=== PATIENT | male | born 1945 | race Caucasian/White ===

== ENCOUNTER 2016-08-31 06:06 | Inpatient (IN) | payer MEDICARE ==
[~2016-08-31 06:06] MED LIST: Buffered Lidocaine 1% SYR 3ML* 3 ML/SYR SYRINGE INTRADERM ONE
[2016-08-31] MEDS ORDERED: Lidocain 1% EPI 1:100,000 * 30 ML MDV ONE (07:05)
[2016-08-31] MEDS ORDERED: Thrombin 5,000 UNITS* 1 APPLIC KIT - topical use - TOPICAL ONE (07:06)
[2016-08-31] MEDS ORDERED: Bacitracin IV* 50,000 UNITS INJ ONE (07:06)
[2016-08-31] MEDS ORDERED: Clindamycin 900 MG IVPREMIX(* 900 MG/50 ML SDV IV ONE (07:10)
[2016-08-31] MEDS ORDERED: Atracurium* 10 MG/ML 10 ML VIAL ONE (07:41)
[2016-08-31] MEDS ORDERED: fentaNYL* 50 MCG/ML 5 ML VIAL (250 MCG VIAL) ONE (07:41)
[2016-08-31] MEDS ORDERED: Propofol* 10 MG/ML 20 ML BTL IV PUSH ONE (08:10)
[2016-08-31] MEDS ORDERED: Lidocaine 2% PF * 5 ML VIAL ONE (08:10)
[2016-08-31] MEDS ORDERED: EPHEDrine (Pressors)* 50 MG/ML VIAL ONE (08:27)
[2016-08-31] MEDS ORDERED: fentaNYL* 50 MCG/ML 2 ML VIAL (100 MCG VIAL) IV PRN (08:35)
[2016-08-31] MEDS ORDERED: Ondansetron INJ* 2 MG/ML VIAL IV PRN ×2 (08:35→09:23)
[2016-08-31] MEDS ORDERED: HYDROcodone/ACETAMIN 5-325 MG* 1 TAB PO PRN (08:35)
[2016-08-31] MEDS ORDERED: DiMENhydriNATE IV* 50 MG/ML VIAL IV PUSH PRN (08:35)
[2016-08-31] MEDS ORDERED: Acetaminophen TAB* 325 MG PO PRN (09:23)
[2016-08-31] MEDS ORDERED: Magnesium Hydroxide LIQ* 30 ML UDC PO PRN (09:23)
[2016-08-31] MEDS ORDERED: fentaNYL* 50 MCG/ML 2 ML VIAL (100 MCG VIAL) ONE (10:06)
--- NOTE | 2016-08-31 11:18 | RAD ---
HISTORY: Decompressive laminectomy COMPARISONS: August 09, 2016 VIEWS: 1 , portable crosstable view of the spine performed intraoperatively for localization during spinal surgery FINDINGS: Counting from L5 as the last lumbar type vertebral body, a metallic probe is opposite of L5-S1. This corresponds to the counting scheme used on the previous CT myelogram., IMPRESSION: LIMITED PORTABLE VIEW SPINE FOR LOCALIZATION DURING SPINAL SURGERY
[2016-08-31] MEDS: HYDROcodone/ACETAMIN 5-325 MG* 1 TAB PO PRN ×3 (11:25→19:36)
[2016-09-01] MEDS: HYDROcodone/ACETAMIN 5-325 MG* 1 TAB PO PRN ×5 (02:36→23:26)
--- NOTE | 2016-09-01 07:45 | PN ---
Progress Note - Progress Note SOAP: Subjective: []POD # 1 Doing well Legs much better Objective: []Neuro intact Drain 405 out Assessment: []Stable post op Plan: [] Doing well Will need to monitor drain output
[2016-09-01] MEDS: Omeprazole CAP* 20 MG PO SCH (10:07)
[2016-09-01] MEDS: Fluticasone NASAL SPRAY 50MCG* 16 gm SPRAY BTL BOTH NARES SCH (10:08)
[2016-09-01] MEDS: CMCS: Simvastatin TAB(NF) 10 MG TAB PO SCH (10:08)
[2016-09-01] MEDS: Sertraline* 25 MG TAB PO SCH (10:08)
[2016-09-02 07:39] VITALS: BP 128/66
[2016-09-02] MEDS: HYDROcodone/ACETAMIN 5-325 MG* 1 TAB PO PRN (08:08)
[2016-09-02] MEDS: CMCS: Simvastatin TAB(NF) 10 MG TAB PO SCH (08:09)
[2016-09-02] MEDS: Sertraline* 25 MG TAB PO SCH (08:09)
[2016-09-02] MEDS: Omeprazole CAP* 20 MG PO SCH (08:09)
[2016-09-02] MEDS: Fluticasone NASAL SPRAY 50MCG* 16 gm SPRAY BTL BOTH NARES SCH (08:09)
--- NOTE | 2016-09-02 09:45 | PN ---
Progress Note - Progress Note SOAP: Subjective: [This is a 71 year old male s/p decompressive lumbar laminectomy L3-4 and L4-5, POD#2. He is feeling well this morning and offers no complaints. Pre-operative lower extremity symptoms are improved. He is ambulating independently without lower extremity pain. He is eating and drinking without difficulty. Denies headache, nausea and vomiting. ] Objective: [ Vital Signs: Temp Pulse Resp BP Pulse Ox 98.7 F 63 18 128/66 99 09/02/16 07:35 09/02/16 07:35 09/02/16 08:08 09/02/16 07:35 09/02/16 07:35 General: Alert and oriented. No distress. Neuro: Motor and sensory intact. Incision: Intact with dorina. No signs of infection. LEANDER drain removed today without complication. Extremities: Full ROM LEANDER drain output 08/31/16 08/31/16 08/31/16 10:30 11:54 15:38 Output, LEANDER #1 70 70 120 08/31/16 08/31/16 09/01/16 19:00 23:40 03:30 Output, LEANDER #1 80 15 30 09/01/16 09/01/16 09/01/16 06:37 11:35 14:00 Output, LEANDER #1 20 40 15 09/01/16 09/01/16 09/02/16 18:00 22:00 01:52 Output, LEANDER #1 20 20 15 09/02/16 06:00 Output, LEANDER #1 16 ] Assessment: [This patient is following a satisfactory post-operative course. Pain is well controlled with PO pain medications. ] Plan: [1. Discharge home today. 2. Discharge instructions including wound care and activity level were discussed with the patient. ]
--- NOTE | 2016-09-02 21:29 | DS ---
DISCHARGE SUMMARY: DATE OF ADMISSION: 08/31/16 DATE OF DISCHARGE: 09/02/16 DISCHARGE DIAGNOSES: 1. Lumbar spinal stenosis. 2. Hypercholesterolemia. SPECIAL PROCEDURE: Decompressive lumbar laminectomy at L3-4 and L4-5. HOSPITAL COURSE: This 71-year-old male was seen in the office with several months to years' history of signs and symptoms consistent with severe lumbar stenosis. He had failed to improve over this time with conservative treatments and was referred to Dr. Collazo. MRI revealed severe stenosis and he was admitted at this time for elective surgical intervention. On the date of admission, he was taken to surgery where under general anesthesia, a decompressive lumbar laminectomy at L3-4 and L4-5 operation was carried out. Postoperatively, he was feeling well. He was ambulating independently. Preoperative lower extremity symptoms were improved. He was eating and drinking without difficulty. LEANDER drain continued to collect a significant amount of fluid on the first postoperative day and he was therefore admitted as an inpatient for an additional night for observation. On the second postoperative day, he was discharged home to the care of his family. Discharge instructions including wound care and activity level were discussed with the patient and provided. He will be seen in office in approximately 7 to 10 days for followup and staple removal. DISCHARGE MEDICATIONS: [place] 5/325 mg 2 tabs by mouth every 4 hours as needed for pain. RACHAEL DAVID [id number]/[facility] #: [id number] MTDTyler
--- NOTE | 2016-09-06 08:52 | OP ---
DATE OF OPERATION: 08/31/16 - ROOM #353 DATE OF : 49 PRIMARY SURGEON: Robin Collazo MD. VASCULAR SURGEON: RACHAEL Slater. ANESTHESIOLOGIST: Adrian Madsen MD ANESTHESIA: General. PRE-OP DIAGNOSIS: Lumbar spinal stenosis, L3-4, L4-5. POST-OP DIAGNOSIS: Lumbar spinal stenosis, L3-4, L4-5. OPERATIVE PROCEDURE: Decompressive lumbar laminectomy, L3-4, L4-5. DESCRIPTION OF PROCEDURE: After satisfactory general anesthesia was obtained, the patient was placed on the operating table in the prone position with the chest supported on the Aleksandr frame and the back slightly flexed. The lumbar region was then clipped, prepped, and draped in a sterile manner for a lumbar laminectomy and a skin incision was outlined from L3 to L5. This incision was infiltrated with 1% Xylocaine with epinephrine, after which it was turned down sharply to the level of the lumbar fascia. The fascia was divided along the spinous processes from L3 to L5 and the paraspinal musculature was stripped away from these posterior elements using the periosteal elevator and monopolar cautery. An intraoperative x-ray was obtained verifying proper interspace localization, after which a decompression was carried out at the L3-4 and L4-5 levels by initially removing the spinous processes of L3, L4, and L5, with a combination of the Dorian distribution technician and [place] rongeurs. The decompression was initially carried out at the L4-5 level, with the inferior aspect of the L4 lamina and medial aspect of the facet complex were thinned out with Midas Henry drill. A decompression was then carried out by removing the inferior aspect of L4, proceeding superiorly until the attachment of the ligamentum flavum was taken down. The pathology at this level was that of a marked ligamentum and bony hypertrophy. Ligamentum was removed with the [place] as well. The decompression was carried out inferiorly until both L5 nerve roots were noted to be free in their course. Attention was then directed to the L3-4 level where a similar decompression was carried out. The pathology at this level was even more advanced with marked facet and ligamentum hypertrophy and stenosis. The inferior aspect of L3 was removed up until the attachment of ligamentum flavum was taken down. Ligamentum was then removed along with the thickened facet complex until both L4 nerve roots were noted to be free in their course. After assuring adequate hemostasis, the wound was thoroughly irrigated, after which Gelfoam was placed over the laminectomy defects. A drain was placed in the epidural space and tunneled out toward the left side. The fascia was then reapproximated with 0 Vicryl suture. The subcutaneous tissue was closed with 3- 0 Vicryl suture and the skin closed with skin clips. The estimated blood loss was less than 50 cc and the final sponge, padding, and needle counts were correct. The patient was taken to the recovery room, extubated, and in stable condition. [id number]/[facility] #: [id number] MTDTyler
== END 2016-09-02 10:30 | disposition home or self-care (01) | DRG 517 ==
LOC: OR 06:06 → SSU 07:46 → OBSVTOIN 09-01 07:46
PROVIDERS: ADMIT Neurological Surgery; ATTEND Neurological Surgery
PROC: 01NB0ZZ Release Lumbar Nerve, Open Approach (ICD-10-PCS; principal; 2016-09-01)
DX: M48.06 Spinal stenosis, lumbar region (principal); F32.9 Major depressive disorder, single episode, unspecified; M19.90 Unspecified osteoarthritis, unspecified site; E78.00 Pure hypercholesterolemia, unspecified; Z88.0 Allergy status to penicillin; Z88.8 Allergy status to other drugs, medicaments and biological substances; Z87.891 Personal history of nicotine dependence; Z95.0 Presence of cardiac pacemaker
CPT/HCPCS: 72100; A9270-GY; J2704; J3010

== ENCOUNTER 2017-01-14 10:38 | Emergency (ER) | payer MEDICARE ==
[2017-01-14 11:40] VITALS: BP 98/54
--- NOTE | 2017-01-14 12:39 | UC ---
Lower Extremity/Ankle HPI - HPI Summary HPI Summary: pt stepped on a "sticker" while walking barefoot in [place]. FB still noted to be embedded in plantar surface of left foot. worse with weight bearing better with rest. pain has increased over the past 24 hours. pt reports that the ball of the foot was very red and swollen last night. which improved after a hot soak last night. concerned for infection. no other sx. - History of Current Complaint Chief Complaint: UCForeignBody Stated Complaint: LEFT FOOT INJURY Time Seen by Provider: 01/14/17 11:48 Hx Obtained From: Patient Onset/Duration: Gradual Onset, Lasting Days - 1, Still Present Severity Initially: Moderate Severity Currently: Moderate Pain Intensity: 4 Aggravating Factor(s): Standing, Ambulation Alleviating Factor(s): Rest, Elevation Able to Bear Weight: Yes - Allergies/Home Medications Allergies/Adverse Reactions: Allergies Allergy/AdvReac Type Severity Reaction Status Date / Time Cephalosporins Allergy Intermediate Swelling Verified 01/14/17 11:40 Penicillins Allergy Intermediate Swelling Verified 01/14/17 11:40 NSAIDs AdvReac Severe stomach Verified 01/14/17 11:40 ulcer Statins AdvReac Intermediate Muscle Ache Verified 01/14/17 11:40 PMH/Surg Hx/FS Hx/Imm Hx Endocrine History: Dyslipidemia Cardiovascular History: Other Other Cardiovascular History: h/o bradicardia, pacemaker GI/ History: Ulcer - Surgical History Surgical History: Yes Surgery Procedure, Year, and Place: right side hernia repair x 2, pace maker 2003, replaced 02/2014. eye surgery as infant. neck growth removed- squamous cell 2002. vasectomy 1984 approx - Family History Known Family History: Negative: Cardiac Disease, Hypertension, Diabetes - Social History Lives: With Family Alcohol Use: None Substance Use Type: None Smoking Status (MU): Former Smoker Type: Cigarettes Length of Time of Smoking/Using Tobacco: 20 yrs Have You Smoked in the Last Year: No When Did the Patient Quit Smoking/Using Tobacco: 1981 - Immunization History Most Recent Influenza Vaccination: FALL 2014 Review of Systems Constitutional: Negative Skin: Other - see hpi Respiratory: Negative Cardiovascular: Negative Musculoskeletal: Negative Neurological: Negative Psychological: Negative All Other Systems Reviewed And Are Negative: Yes Physical Exam Triage Information Reviewed: Yes Appearance: Well-Appearing, No Pain Distress, Well-Nourished Vital Signs: Initial Vital Signs Temp 98.3 F 01/14/17 11:34 Pulse 92 01/14/17 11:34 Resp 16 01/14/17 11:34 BP 98/54 01/14/17 11:34 Pulse Ox 100 01/14/17 11:34 Vital Signs Reviewed: Yes Eyes: Positive: Conjunctiva Clear. Negative: Discharge ENT: Positive: Hearing grossly normal. Negative: Muffled/hoarse voice Neck: Positive: Supple Respiratory: Positive: Lungs clear, Normal breath sounds, No respiratory distress, No accessory muscle use Cardiovascular: Positive: RRR, No Murmur Musculoskeletal Exam: Normal Neurological: Positive: Alert, Muscle Tone Normal Psychological: Positive: Age Appropriate Behavior Skin: Positive: Other - soft tissue fb noted over in planter surface over the bal of the foot. tender to touch. min erythema noted around fb. fb removed with 18 gauge needle and splinter forceps. no complications, well tolerated. Lower Extremity Course/Dx - Differential Dx/Diagnosis Differential Diagnosis/HQI/PQRI: Cellulitis, Foreign Body, Infection, Sprain Provider Diagnoses: soft tissue fb, wound infection Discharge - Discharge Plan Condition: Stable Disposition: HOME Prescriptions: DOXYcycline CAP(*) [DOXYcycline 100MG CAP(*)] 100 mg PO BID #20 cap Patient Education Materials: Soft Tissue Foreign Body (ED), Wound Infection (ED ), Warm Compress or Soak (ED) Referrals: Manny Echeverria MD [Primary Care Provider] - 2 Days (FOLLOW UP IN 2 DAYS IF NOT IMPROVING ON ANTIBIOTICS) Additional Instructions: DOXYCYCLINE: Doxycycline (Vibramycin, Doryx) is an antibiotic of the tetracycline family. This type of drug is useful for infections of the respiratory tract and genital tract, and is sometimes used for intestinal infections. Unlike most tetracyclines, doxycycline can be taken with food. It is longer acting, and (usually) less prone to side effects than regular tetracycline. Tetracycline antibiotics can stain immature teeth and SHOULD NOT BE TAKEN BY CHILDREN, NURSING MOTHERS, OR WOMEN. Tetracyclines can make you more prone to sunburn. Abdominal cramping, nausea, and diarrhea are occasional side effects. Women may experience vaginal yeast infections. Call the doctor at once if you develop hives, itching, shortness of breath , or lightheadedness. DISCUSSED, DOXY ALSO INCREASES YOUR RISK OF SUNBURN. COVER UP WHEN YOU GO OUTSIDE. ANYTIME YOU TAKE AN ANTIBIOTIC, IT IS IMPORTANT TO REPLENISH THE BODY'D SUPPLY OF "GOOD BACTERIA." YOU CAN GET GOOD BACTERIA FROM HIGH QUALITY CULTURED FOODS SUCH LOCAL YOGURT, SOUR KRAUT, ALIS ISAIAS, NATURALLY FERMENTED PICKLES AND PROBIOTIC DRINKS. YOU CAN ALSO GET GOOD BACTERIA FROM A PROBIOTIC SUPPLEMENT.
== END 2017-01-14 12:41 | disposition home or self-care (01) ==
LOC: UCCORT 10:38
DX: S91.342A Puncture wound with foreign body, left foot, initial encounter (principal); L08.9 Local infection of the skin and subcutaneous tissue, unspecified; W22.8XXA Striking against or struck by other objects, initial encounter; Y93.01 Activity, walking, marching and hiking; Y92.9 Unspecified place or not applicable; Y99.9 Unspecified external cause status; Z87.891 Personal history of nicotine dependence
CPT/HCPCS: 99212; G0463

== ENCOUNTER 2017-06-22 13:57 | Emergency (ER) | payer MEDICARE ==
[2017-06-22 14:31] VITALS: BP 120/69
--- NOTE | 2017-06-22 15:44 | UC ---
Throat Pain/Nasal [place] HPI - HPI Summary HPI Summary: Pt c/o nasal congestion, PND, cough, and sore throat. X 3 days. Also, c/o generalized malaise, and fatigue. - History of Current Complaint Chief Complaint: UCRespiratory Stated Complaint: ST/COUGH Time Seen by Provider: 06/22/17 15:34 Hx Obtained From: Patient Onset/Duration: Gradual Onset, Lasting Days, Still Present Severity: Mild Cough: Nonproductive Associated Signs & Symptoms: Positive: Dysphagia, Other - PND - Epiglottits Risk Factors Epiglottis Risk Factors: Negative - Allergies/Home Medications Allergies/Adverse Reactions: Allergies Allergy/AdvReac Type Severity Reaction Status Date / Time Cephalosporins Allergy Intermediate Swelling Verified 06/22/17 14:31 Penicillins Allergy Intermediate Swelling Verified 06/22/17 14:31 NSAIDs AdvReac Severe stomach Verified 06/22/17 14:31 ulcer Statins AdvReac Intermediate Muscle Ache Verified 06/22/17 14:31 Home Medications: Home Medications Aspirin Low Dose CHEW TAB* [Aspirin Low Dose TAB*] 81 mg PO DAILY 06/22/17 [ History Confirmed 06/22/17] PMH/Surg Hx/FS Hx/Imm Hx Previously Healthy: Yes - Surgical History Surgical History: Yes Surgery Procedure, Year, and Place: right side hernia repair x 2, pace maker 2003, replaced 02/2014. eye surgery as . neck growth removed- squamous cell 2002. vasectomy 1984 approx. spinal stenosis repair L4-L5 2016 - Family History Known Family History: Positive: None Negative: Cardiac Disease, Hypertension, Diabetes - Social History Occupation: Retired Lives: With Family Alcohol Use: None Substance Use Type: None Smoking Status (MU): Former Smoker Type: Cigarettes Length of Time of Smoking/Using Tobacco: 20 yrs Have You Smoked in the Last Year: No When Did the Patient Quit Smoking/Using Tobacco: 1981 - Immunization History Most Recent Influenza Vaccination: FALL 2016 Review of Systems Constitutional: Chills, Fatigue Skin: Negative Eyes: Negative ENT: Sore Throat, Other - PND, nasal congestion Respiratory: Cough Cardiovascular: Negative Gastrointestinal: Negative Genitourinary: Negative Motor: Negative Neurovascular: Negative Musculoskeletal: Negative Neurological: Negative Psychological: Negative Is Patient Immunocompromised?: No All Other Systems Reviewed And Are Negative: Yes Physical Exam Triage Information Reviewed: Yes Appearance: Ill-Appearing Vital Signs: Initial Vital Signs Temp 98.1 F 06/22/17 14:25 Pulse 76 06/22/17 14:25 Resp 16 06/22/17 14:25 BP 120/69 06/22/17 14:25 Pulse Ox 99 06/22/17 14:25 Eye Exam: Normal ENT Exam: Other ENT: Positive: Nasal congestion Dental Exam: Normal Neck exam: Normal Respiratory Exam: Normal Cardiovascular Exam: Normal Musculoskeletal Exam: Normal Neurological Exam: Normal Psychological Exam: Normal Skin Exam: Normal Throat Pain/Nasal Course/Dx - Differential Dx/Diagnosis Differential Diagnosis/HQI/PQRI: Influenza, Pharyngitis, URI Provider Diagnoses: viral syndrome. sore throat Discharge - Discharge Plan Condition: Stable Disposition: HOME Patient Education Materials: Viral Syndrome (ED) Referrals: Manny Echeverria MD [Primary Care Provider] - If Needed Additional Instructions: Please follow up with your PCP or return to clinic as needed.
== END 2017-06-22 15:50 | disposition home or self-care (01) ==
LOC: UCCORT 13:57
DX: B34.9 Viral infection, unspecified (principal); J02.9 Acute pharyngitis, unspecified; Z87.891 Personal history of nicotine dependence
CPT/HCPCS: 99211; G0463

== ENCOUNTER 2018-01-20 08:28 | Emergency (ER) | payer MEDICARE ==
[2018-01-20 09:02] VITALS: BP 113/53
--- NOTE | 2018-01-20 09:16 | UC ---
General HPI - HPI Summary HPI Summary: 72 yo gentleman c/o R lower back pain, progressively worse since yesterday. Mr. Pillai had lumbar stenosis surgery approx 1 1/2 yr ago (report in [employer] reviewed), but has not had residual issues. Recently however, went on a long trip to [place], with lots of driving and movement. Flew back home 2 days ago, c/o pain but mild. yesterday mowed lawn. Pain this morning excrutiating. Has been taking acetaminophen every 6 hours for the past 2 days. Unk if fever (taking acetaminophen). No b/b leakage. + constipation. No melena. No p/w. Hurts in any position. Pain R low back. - History of Current Complaint Chief Complaint: UCBackPain Stated Complaint: LOWER BACK/RIGHT SIDE Time Seen by Provider: 01/20/18 09:15 Hx Obtained From: Patient Pain Intensity: 8 - Allergy/Home Medications Allergies/Adverse Reactions: Allergies Allergy/AdvReac Type Severity Reaction Status Date / Time NSAIDS (Non-Steroidal Allergy Severe GI Upset Verified 01/20/18 08:51 Anti-Inflamma Cephalosporins Allergy Intermediate Swelling Verified 01/20/18 08:51 Penicillins Allergy Intermediate Swelling Verified 01/20/18 08:51 atorvastatin [From Lipitor] Allergy Muscle Ache Verified 01/20/18 08:57 PMH/Surg Hx/FS Hx/Imm Hx Previously Healthy: No - see hpi and below - Surgical History Surgical History: Yes Surgery Procedure, Year, and Place: right side hernia repair x 2, pace maker 2003, replaced 02/2014. eye surgery as infant. neck growth removed- squamous cell 2002. vasectomy 1983 approx. spinal stenosis repair L4-L5 2016 - Family History Known Family History: Positive: None Negative: Cardiac Disease, Hypertension, Diabetes - Social History Alcohol Use: None Substance Use Type: None Smoking Status (MU): Former Smoker Type: Cigarettes Length of Time of Smoking/Using Tobacco: 20 yrs Have You Smoked in the Last Year: No When Did the Patient Quit Smoking/Using Tobacco: 1981 - Immunization History Most Recent Influenza Vaccination: FALL 2016 Review of Systems Constitutional: Negative Skin: Negative Eyes: Negative ENT: Negative Respiratory: Negative Cardiovascular: Negative Gastrointestinal: Negative Genitourinary: Negative Motor: Negative, Other - see hpi Neurovascular: Other - see hpi Musculoskeletal: Arthralgia, Myalgia Neurological: Negative - see hpi Psychological: Negative Is Patient Immunocompromised?: No All Other Systems Reviewed And Are Negative: Yes Physical Exam Triage Information Reviewed: Yes Appearance: Well-Nourished, Other: - looks very uncomfortable with any position and movement Vital Signs: Initial Vital Signs Temp 97.3 F 01/20/18 08:57 Pulse 63 01/20/18 08:57 Resp 18 01/20/18 08:57 BP 113/53 01/20/18 08:57 Pulse Ox 100 01/20/18 08:57 Vital Signs Reviewed: Yes Eye Exam: Normal - grossly normal ENT Exam: Normal Neck exam: Normal Neck: Positive: Supple Respiratory Exam: Normal Respiratory: Positive: Chest non-tender, Lungs clear, Normal breath sounds, No respiratory distress, No accessory muscle use Cardiovascular Exam: Normal Cardiovascular: Positive: RRR, Pulses Normal, Brisk Capillary Refill Musculoskeletal Exam: Other - Tender R low back just lateral to, and directly over mid lumbar region. No crepitus. some radiation to R sciatic region. + distal sens LT present. Neurological Exam: Normal Psychological Exam: Normal Skin Exam: Normal - no visible or reported rash Course/Dx - Course Course Of Treatment: Mr. Pillai is in excrutiating pain. Denies hx of this in this location. Diff dx includes disc / djd / nerve entrapment. Also c/n r/o other, such as infectious (ex abscess). I recommend further evaluation and management ED. Mr. Pillai and his carefully considered this, and agree. She will drive, as he is in too much pain. [facility] Questions as posed answered to the best of my ability. - Differential Dx - Multi-Symptom Provider Diagnoses: Acute severe, unrelenting R low back pain Discharge - Sign-Out/Discharge Documenting (check all that apply): Patient Departure - Discharge Plan Condition: Guarded Disposition: HOME-RECOMMEND TO ED Patient Education Materials: Acute Low Back Pain (ED) Referrals: Manny Echeverria MD [Primary Care Provider] - Additional Instructions: Go directly to the Emergency Department. Call [phone] for problems en route. Please call your primary care physician for appointment next week if possible. - Billing Disposition and Condition Condition: GUARDED Disposition: Home-Recommend to ED
== END 2018-01-20 09:48 | disposition home health service (06) ==
LOC: UCCORT 08:28
DX: M54.5 Low back pain (principal); Z88.6 Allergy status to analgesic agent; Z88.1 Allergy status to other antibiotic agents; Z88.0 Allergy status to penicillin; Z88.8 Allergy status to other drugs, medicaments and biological substances; Z87.891 Personal history of nicotine dependence
CPT/HCPCS: 99212; G0463

== ENCOUNTER 2018-08-24 14:19 | Emergency (ER) | payer MEDICARE ==
--- OUTSIDE RECORDS SUMMARY | 2018-08-24 15:58 | XMS REPORT | Continuity of Care Document ---
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 Manny Echeverria MD Primary Care Physician Unavailable Payers Type Date Identification Numbers Payment Provider Subscriber Policy Number: [id number] Medicare Isaac Pillai PayID: [id number] [address] [facility] [place] [address] Policy Number: [id number] [facility] Isaac Pillai PayID: [id number] [address] [place] [address] Expires: 2017 Policy Number: [id number] [employer] Isaac Pillai [address] [place] [address] Advance Directives Description No Information Available Problems Date Description Provider Status Onset: 11/22/2011 Disturbance in sleep behavior Ansley Ramírez PA Active Onset: 11/22/2011 Difficulty breathing Ansley Ramírez PA Active Family History Date Family Member(s) Problem(s) Comments : (age 90 Years) Father due to Prostate Cancer Mother Congestive Heart Failure (CHF) Social History Type Date Description Comments Sex Unknown Marital Status Occupation [employer] Tobacco Use Start: Unknown End: Used To Smoke Unknown Cigarettes But Quit. ETOH Use Quit Using Alcohol. Recreational Drug Use Has Used In Past 1960's Allergies, Adverse Reactions, Alerts Date Description Reaction Status Severity Comments 06/09/2011 Penicillins Active 11/22/2011 Penicillin SWELLING Inactive 01/08/2015 NKDA Inactive Medications Medication Date Status Form Strength Qnty SIG Indications Ordering Provider Omeprazole Active Capsules DR 40mg 1 by mouth Unknown /0000 every day Centrum Silver 00 Active Tablets Adult 50 1 by mouth Unknown Adult 50+ /0000 every day Sertraline HCL Active Tablets 50mg 1 by mouth Unknown every day Calcium + D3 Active Tablets 600-200 1 by mouth Unknown twice a day Aspirin Active Tablets DR 81mg 1 by mouth Unknown every day Claritin Active Tablets 10mg 1 by mouth Unknown every day Simvastatin Active Tablets 10mg 1 by mouth Unknown every day Flonase Allergy Active Suspension 50mcg/Act 2 sprays Unknown each nostril twice daily Tylenol Extra Active Tablets 500mg 1-2 by mouth Unknown Strength 0000 every 4 hours as needed Magic Mouth 05/30 Hx Liquid 1:1:1 30ml 2.5 cubic Askew, centimeters Felix, - swish and M.D. 08/01 spit 2- times a day. do not swallow. mylanta:sandi dryl:lidocai ne Percocet 05/23 Hx Tablets 5-325mg 20tab 1-2 by mouth Askew, s four times a Felix, - day as M.D. 08/01 needed for pain Clindamycin HCL 05/04 Hx Capsules 300mg 20cap 1 by mouth Askew, s twice a day Felix, - x 10 days M.D. 08/01 Bactrim DS 03/11 Hx Tablets 800-160mg 14tab 1 by mouth Askew, s twice a day Felix, - x 7 days M.D. 04/23 Omeprazole 06/[address] 40mg 90cap 1 by mouth Jacki, s every day MD Manny - 09/07 Sertraline HCL 01/30 Hx Tablets 25mg 90tab 1 by mouth Jacki, s every day MD Manny - 09/07 Centrum Silver 07/13 Hx Tablets Jacki, Ultra MD Manny - 09/07 Multivitamins Hx Tablets Daily Unknown - 09/07 Calcium Hx Tabs Unknown - 09/07 Extra Strength Hx Capsules 500mg prn Unknown Acetaminophen - 09/07 Mucinex D Hx prn Unknown /0000 - 09/07 Prozac Hx 20mg Unknown /0000 - 09/07 Mucinex DM Hx Tablets ER 60-1200mg 14tab 1 po bid prn Unknown Maximum 0000 12HR s Strength - 09/07 Valacyclovir Hx Tablets 1gm Unknown HCL / - 03/08 Clindamycin HCL Hx Capsules 300mg 1 by mouth Unknown / twice a day - for 10 days 04/23 Naproxen Hx Tablets 375mg 1 by mouth Unknown /0000 every day - 05/15 Percocet Hx Tablets 5-325mg 20tab 1-2 by mouth Askew, / s four times a Felix, - day as M.D. 03/27 needed for pain Immunizations Description No Information Available Vital Signs Date Vital Result Comment 08/01/2018 1:51pm Weight 202.00 lb Height 74 inches 6'2" BMI (Body Mass Index) 25.9 kg/m2 BP Systolic 97 mmHg BP Diastolic 63 mmHg Heart Rate 91 /min O2 % BldC Oximetry 97 % Body Temperature 97.4 F Pain Level 0 05/30/2018 1:58pm Weight 197.00 lb Height 74 inches 6'2" BMI (Body Mass Index) 25.3 kg/m2 BP Systolic 101 mmHg BP Diastolic 68 mmHg Heart Rate 86 /min O2 % BldC Oximetry 97 % Body Temperature 97.3 F Pain Level 3 05/12/2018 7:31am Weight 199.00 lb Height 74 inches 6'2" BMI (Body Mass Index) 25.5 kg/m2 BP Systolic 104 mmHg BP Diastolic 72 mmHg Heart Rate 78 /min O2 % BldC Oximetry 96 % Body Temperature 97.2 F Pain Level 2 04/24/2018 11:24am Weight 198.00 lb Height 74 inches 6'2" BMI (Body Mass Index) 25.4 kg/m2 BP Systolic 112 mmHg BP Diastolic 75 mmHg Heart Rate 75 /min O2 % BldC Oximetry 98 % Body Temperature 97.9 F Pain Level 4 04/03/2018 11:07am Weight 198.00 lb Height 74 inches 6'2" BMI (Body Mass Index) 25.4 kg/m2 BP Systolic 103 mmHg BP Diastolic 69 mmHg Heart Rate 87 /min O2 % BldC Oximetry 97 % Body Temperature 97.8 F Pain Level 4 03/27/2018 2:27pm Weight 197.00 lb Height 74 inches 6'2" BMI (Body Mass Index) 25.3 kg/m2 BP Systolic 104 mmHg BP Diastolic 66 mmHg Heart Rate 94 /min O2 % BldC Oximetry 96 % Body Temperature 98.2 F Pain Level 0 03/16/2018 1:38pm Weight 198.25 lb Height 74 inches 6'2" BMI (Body Mass Index) 25.5 kg/m2 BP Systolic 125 mmHg BP Diastolic 81 mmHg Heart Rate 80 /min O2 % BldC Oximetry 97 % Body Temperature 98.0 F Pain Level 4 03/14/2018 10:28am Weight 195.00 lb Height 74 inches 6'2" BMI (Body Mass Index) 25.0 kg/m2 BP Systolic 91 mmHg BP Diastolic 60 mmHg Heart Rate 89 /min O2 % BldC Oximetry 97 % Body Temperature 97.6 F Pain Level 0 03/09/2018 9:12am Weight 199.25 lb Height 74 inches 6'2" BMI (Body Mass Index) 25.6 kg/m2 BP Systolic 115 mmHg BP Diastolic 76 mmHg Heart Rate 88 /min O2 % BldC Oximetry 97 % Body Temperature 97.6 F 09/08/2017 3:23pm Weight 201.00 lb Height 74 inches 6'2" BMI (Body Mass Index) 25.8 kg/m2 BP Systolic 118 mmHg BP Diastolic 79 mmHg Heart Rate 83 /min O2 % BldC Oximetry 98 % Body Temperature 97.8 F Pain Level 0 11/12/2013 4:04pm Weight 199.12 lb Body Temperature 98.5 F 10/30/2013 4:10pm Body Temperature 98.4 F 10/02/2013 4:19pm Weight 201.38 lb Height 74 inches 6'2" BMI (Body Mass Index) 25.9 kg/m2 BP Systolic 114 mmHg BP Diastolic 68 mmHg Heart Rate 75 /min O2 % BldC Oximetry 96 % Body Temperature 98.2 F 12/13/2011 8:20am Height 74 inches 6'2" BP Systolic 104 mmHg BP Diastolic 60 mmHg Heart Rate 69 /min O2 % BldC Oximetry 99 % 11/22/2011 10:33am Weight 201.00 lb Height 74 inches 6'2" BMI (Body Mass Index) 25.8 kg/m2 BP Systolic 118 mmHg BP Diastolic 70 mmHg Heart Rate 77 /min O2 % BldC Oximetry 98 % Body Temperature 97.9 F Results Test Date Facility Test Result H/L Range Note Laboratory test 05/23/2018 [facility] Fungal Cult Other SEE RESULT [address] [place] [address] [phone] Wound 05/23/2018 [facility] Wound/Misc SEE RESULT 2 Culture/Sensi [address] Culture-[place] [address] [phone] Acid Fast 05/23/2018 [facility] Acid Fast Culture SEE RESULT 3 Culture & Smear [address] [place] [address] [phone] Acid Fast 05/23/2018 [facility] Mycobacterial See Comment 4 Culture & Smear [address] [place] [address] [phone] Laboratory test 05/23/2018 [facility] Surgical Pathology SEE RESULT [address] [place] [address] [phone] Fungal Cult Other Sources SEE RESULT BELOW 6 Laboratory test 05/23/2018 [facility] Fungal Cult SEE RESULT [address] [place] [address] [phone] Laboratory test 05/23/2018 [facility] Fungal Cult SEE RESULT [address] [place] [address] [phone] Laboratory test 05/23/2018 [facility] Anaerobic SEE RESULT [address] Culture [place], [place] [address] [phone] Laboratory test 03/16/2018 [facility] Cytology SEE RESULT 10, [address] Non-Back [place], [place] [address] [phone] CBS W/Automated 03/11/2018 [facility] White Blood 6.6 K/uL N 3.4-[address] Count 0.5 [place] [address] [phone] Red Blood Count 4.90 M/uL N 4.20-5.80 Hemoglobin 13.3 gm/dL N 12.8-17.0 Hematocrit 40.3 % N 38.0-48.0 Mean Cell Volume 82.2 fl N 80.0-96.0 Mean Corpuscular HGB 27.1 pg N 27.0-33.0 Mean Corpuscular HGB Conc 33.0 g/dL N 31.7-36.0 Platelet Count 317 K/uL N 155-360 Red Cell Distri Width SD 40.4 fl N 36-51 Red Cell Distri Width %CV 13.9 % N 11.6-15.8 Mean Platelet Volume 9.1 fL N 6.6-10.6 Neut% 68.6 % N 33.0-73.0 Lymph % 17.3 % Low 20.0-42.0 [place] % 11.4 % High 0.0-10.0 Eo% 2.4 % N 0.0-6.6 Bas% 0.3 % N 0.0-1.1 Neut# 4.55 K/uL N 1.8-7.0 Lymph # 1.15 K/uL N 1.0-4.0 [place] # 0.76 K/uL N 0.0-0.8 Eos # 0.16 K/uL N 0.0-0.5 Baso # 0.02 K/uL N 0.0-0.1 Laboratory test 03/11/2018 [facility] Sedimentation 57 mm/hr High 0-20 [address] [place] [address] [phone] Basic Metabolic 03/11/2018 [facility] Glucose 91 mg/dL N 74- [address] [place] [address] [phone] BUN 14 mg/dL N 7-18 Creatinine 0.9 mg/dL N 0.6-1.3 Glom Filtration Rate, Estimate >60 mL/min >60 If >60 mL/min >60 14 BUN/Creat 15.5 ratio Sodium 135 mmol/L Low 136-145 Potassium 4.1 mmol/L N 3.5-5.1 Chloride 100 mmol/L N 98-107 Carbon Dioxide 27 mmol/L N 21-32 Anion Gap 8 mEq/L N 8-16 Calcium 9.2 mg/dL N 8.5-10.1 1 SEE RESULT BELOW Name: ISAAC PILLAI : [address]: Felix Askew MD Acct: [id number] Unit: [id number] AGE: 73 Location: [facility] Re05/23/18 SEX: M Status: REG REF SPEC: [id number] JOS: 05/23/[address] [facility] [address]: Felix Askew MD REQ: [id number] RECD: 05/23/18 STATUS: RES _ SOURCE: WOUND SPDESC: ORDERED: Fungal - Other, AFB Cult Smear COMMENTS: [id number] MANDIBLE WOUND Procedure Result Reported Site Fungal Cult - Other Sources Preliminary 05/29/18- 1336 ML No Growth Week 1 Acid Fast Stain - Direct Final 05/23/18- 1508 ML AFB Smear Result No Acid Fast Bacillus Present (Negative) Preparation By Direct Smear * ML - Main Lab . END OF REPORT DEPARTMENT OF PATHOLOGY, [address] [place] [address] Rubens Melo M.D. Director [facility] # [id number] 2 SEE RESULT BELOW Name: ISAAC PILLAI : [address]: Felix Askew MD Acct: [id number] Unit: [id number] AGE: 73 Location: [facility] Re05/23/18 SEX: M Status: REG REF SPEC: [id number] JOS: 05/23/[address]: Felix Askew MD REQ: [id number] RECD: 05/23/187107 STATUS: COMP _ SOURCE: MISC SOURC SPDESC: ORDERED: Culture Stain COMMENTS: [id number] Specimen Description RIGHT MANDIBLE Procedure Result Reported Site Wound/Misc Gram Stain Final 05/23/18- 1524 ML 1+ Neutrophils 2+ Nucleated Cells 1+ Gram Positive Cocci in Chains, resembling Strep Wound/Misc Culture Final 05/27/18- 0821 ML Organism 1 STREPTOCOCCUS CONSTELLATUS Quantity 3+ Organism 2 NORMAL HIMANSHU Quantity 1+ 1. STREPTOCOCCUS CONSTELLATUS M.I.C. RX --------- ------ Chloramphenicol 8 I Ampicillin <=0.06 S Penicillin <=0.03 S Meropenem <=0.06 S Cefepime <=0.25 S * Cefotaxime <=0.25 S Ceftriaxone <=0.25 S Levofloxacin 0.5 S Azithromycin >2 R Clindamycin >0.5 R Erythromycin >0.5 R Tetracycline 2 S Vancomycin 1 S * ML - Main Lab . END OF REPORT DEPARTMENT OF PATHOLOGY, [address] [place] [address] Rubens Melo M.D. Director [facility] # [id number] 3 SEE RESULT BELOW Name: ISAAC PILLAI : [address]: Felix Askew MD Acct: [id number] Unit: [id number] AGE: 73 Location: [facility] Re05/23/18 SEX: M Status: REG REF SPEC: [id number] JOS: 05/23/[address] [facility] [address]: Felix Askew MD REQ: [id number] RECD: 05/23/18 STATUS: RES _ SOURCE: WOUND SPDESC: ORDERED: Fungal - Other, AFB Cult Smear COMMENTS: [id number] Procedure Result Reported Site Fungal Cult - Other Sources PENDING Acid Fast Stain - Direct Final 05/23/18- 1508 ML AFB Smear Result No Acid Fast Bacillus Present (Negative) Preparation By Direct Smear * ML - Main Lab . END OF REPORT DEPARTMENT OF PATHOLOGY, [address] [place] [address] Rubens Melo M.D. Director [facility] # [id number] 4 SOURCE: MANDIBLE, WOUND SWAB MYCOBACTERIAL CULTURE FINAL No growth after 42 days of incubation. Test Performed by: [facility] - [address] [address] 5 SEE RESULT BELOW Name: ISAAC PILLAI : [address]: Felix Askew MD Acct: [id number] Unit: [id number] AGE: 73 Location: [facility] Re05/23/18 SEX: M Status: REG REF SPEC: [id number] JOS: 05/23/1808[address] [facility] [address]: Felix Askew MD REQ: [id number] RECD: 05/23/18 STATUS: SOUT _ ORDERED: Juju, LEVEL 4 COMMENTS: [id number] FINAL DIAGNOSIS Right mandible, biopsy: -- Ulcerated, inflamed granulation tissue involving soft tissue and bone. -- No evidence of neoplasia. CLINICAL HISTORY No history given GROSS DESCRIPTION The specimen is received in formalin labeled, Right Mandible Biopsy, and consists of two christensen-white irregular bone fragments measuring 1.0 x 0.8 x 0.2 cm and 2.4 by up to 0.9 x 0.2 cm. Received separately in the same container is a 1.0 x 0.9 x 0.4 cm aggregate of christensen-red irregular soft tissue fragments. The specimen is entirely submitted in cassettes A through C as follows: A-bone following decalcification and B-soft tissue and C-bone following decalcification. Signed by and Reported on: Anju Martinez MD 06/13/18 1553 END OF REPORT DEPARTMENT OF PATHOLOGY, [address] [place] [address] Rubens Melo M.D. Director [facility] # [id number] 6 SEE RESULT BELOW Name: ISAAC PILALI : [address]: Felix Askew MD Acct: [id number] Unit: [id number] AGE: 73 Location: [facility] Re05/23/18 SEX: M Status: REG REF SPEC: [id number] JOS: 05/23/[address] [facility] [address]: Felix Askew MD REQ: [id number] RECD: 05/23/18 STATUS: COMP _ SOURCE: WOUND SPDESC: ORDERED: Fungal - Other, AFB Cult Smear COMMENTS: [id number] MANDIBLE WOUND Procedure Result Reported Site Fungal Cult - Other Sources Final 06/19/18- 1307 ML Fungal Culture No Growth of Mycotic Organisms 4 weeks Acid Fast Stain - Direct Final 05/23/18- 1508 ML AFB Smear Result No Acid Fast Bacillus Present (Negative) Preparation By Direct Smear * ML - Main Lab . END OF REPORT DEPARTMENT OF PATHOLOGY, [address] [place] [address] Rubens Melo M.D. Director [facility] # [id number] 7 SEE RESULT BELOW Name: ISAAC PILLAI : [address]: Felix Askew MD Acct: [id number] Unit: [id number] AGE: 73 Location: [facility] Re05/23/18 SEX: M Status: REG REF SPEC: [id number] JOS: 05/23/18 [facility]: Felix Askew MD REQ: [id number] RECD: 05/23/18 STATUS: RES _ SOURCE: WOUND SPDES: ORDERED: Fungal - Other, AFB Cult Smear COMMENTS: [id number] MANDIBLE WOUND Procedure Result Reported Site Fungal Cult - Other Sources Preliminary 06/12/18- 1352 ML Fungal Culture No Growth of Mycotic Organisms 3 weeks Acid Fast Stain - Direct Final 05/23/18- 1508 ML AFB Smear Result No Acid Fast Bacillus Present (Negative) Preparation By Direct Smear * ML - Main Lab . END OF REPORT DEPARTMENT OF PATHOLOGY, [address] [place] [address] Rubens Melo M.D. Director [facility] # [id number] 8 SEE RESULT BELOW Name: ISAAC PILLAI : [address]: Felix Askew MD Acct: [id number] Unit: [id number] AGE: 73 Location: [facility] Re05/23/18 SEX: M Status: REG REF SPEC: [id number] JOS: 05/23/[address] [facility] [address]: Felix Askew MD REQ: [id number] RECD: 05/23/18 STATUS: RES _ SOURCE: WOUND SPDESC: ORDERED: Fungal - Other, AFB Cult Smear COMMENTS: [id number] MANDIBLE WOUND Procedure Result Reported Site Fungal Cult - Other Sources Preliminary 06/05/18- 1250 ML Fungal Culture No Growth of Mycotic Organisms 2 weeks Acid Fast Stain - Direct Final 05/23/18- 1508 ML AFB Smear Result No Acid Fast Bacillus Present (Negative) Preparation By Direct Smear * ML - Main Lab . END OF REPORT DEPARTMENT OF PATHOLOGY, [address] [place] [address] Rubens Melo M.D. Director [facility] # [id number] 9 SEE RESULT BELOW Name: ISAAC PILLAI : [address]: Felix Askew MD Acct: [id number] Unit: [id number] AGE: 73 Location: [facility] Re05/23/18 SEX: M Status: REG REF SPEC: [id number] JOS: 05/23/[address]: Felix Askew MD REQ: [id number] RECD: 05/23/18 STATUS: COMP _ SOURCE: BODY FLUID SPDESC: ORDERED: Anaerobic Cult COMMENTS: right mandible Procedure Result Reported Site Anaerobic Culture Final 05/27/18- 829 ML Anaerobe Culture No Anaerobes Day 4 * ML - Main Lab . END OF REPORT DEPARTMENT OF PATHOLOGY, [address] [place] [address] Rubens Melo M.D. Director [facility] # [id number] 10 [id number] 11 SEE RESULT BELOW Name: ISAAC PILLAI : [address]: Felix Askew MD Acct: [id number] Unit: [id number] AGE: 72 Location: [facility] Re03/16/18 SEX: M Status: REG REF SPEC: [id number] JOS: 03/16/18-[address] [facility] [address]: Felix Askew MD REQ: [id number] RECD: 03/16/18 STATUS: SOUT _ ORDERED: FNA [facility], LEVEL 4 COMMENTS: [id number] FINAL DIAGNOSIS Right neck, fine needle aspiration: -- Anucleate squames and blood -- No evidence of neoplasia identified. A cell block was prepared in the evaluation of this specimen. Smears and cell block reveal similar findings. A. NECK RIGHT - RIGHT NECK MASS FINE NEEDLE ASPIRATION CLINICAL HISTORY Right neck mass. GROSS DESCRIPTION 2 Alcohol fixed slide(s) received from clinician, 2 Air dried slide(s) and needle rinse in formalin for cell block. Signed by and Reported on: Rubens Melo MD 01/25 1306 END OF REPORT DEPARTMENT OF PATHOLOGY, [address] [place] [address] Rubens Melo M.D. Director [facility] # [id number] 12 R22.1/L03.211 13 Method: Sediplast Modified Westergren 14 Note: Persistent reduction for 3 months or more in an eGFR <60 mL/min/1.73 m2 defines CKD. Patients with eGFR values >/=60 mL/min/1.73 m2 may also have CKD if evidence of persistent proteinuria is present. The original MDRD equation for estimated GFR is not valid for patients less than 18 years of age. Additional information may be found at www.kdoqi.org. Procedures Date Code Description Status 05/23/2018 36320 Excision Of The Bone, Mandible Completed 05/23/2018 47612 Anesthesia, Facial Bone Surgery Not Otherwise Spec Completed 05/12/2018 09203 Ultrasound Head/Neck Completed 05/03/2018 [id number] Diabetic Foot Exam Completed 05/03/2018 [id number] Diabetic Retinal Eye Exam Completed 05/03/2018 798927700 Bone Mineral Density Test Completed 04/24/2018 42169 Cat Scan Maxillofacial W/O Contrast,computed Completed tomography 04/24/2018 19066 Cat Scan Maxillofacial W/O Contrast,computed Completed tomography 04/24/2018 72707 Cat Scan Maxillofacial W/O Contrast,computed Completed tomography 03/20/2018 70383 I & D Absc.Retrophar.Or Parahar. Completed 03/20/2018 00024 I & D Absc.Retrophar.Or Parahar. Completed 03/20/2018 78768 Anesthesia Salivary Glands Biopsy Completed 03/16/2018 87530 Ultrasonic Guide Needle Biopsy Completed 03/16/2018 46433 Fna W/Image Completed 03/14/2018 37368 IV Infusion, Hydration, 31 Minutes To 1 Hour Completed 03/14/2018 73277 Ultrasound Head/Neck Completed 03/11/2018 45776 Ultrasound Head/Neck Completed 03/09/2018 35200 Ultrasound Head/Neck Completed 03/09/2018 32078 IV Push Single Or Initial Substance/Drug Completed 09/08/2017 45605 Ultrasound Head/Neck Completed 09/08/2017 74259 Fiberoptic Laryngoscopy,Diag. Completed 10/12/2013 86685 Audiometry, Comprehensive Completed 10/12/2013 93442 Audiometry, Comprehensive Completed 10/12/2013 17420 Caloric Vestibular Test W/Recording Completed 10/12/2013 35253 Caloric Vestibular Test W/Recording Completed 10/12/2013 57009 Basic Vestibular Eval Completed 10/12/2013 41466 Basic Vestibular Eval Completed 11/28/2011 43409 Sleep Staging 4Or More Para Completed 11/22/2011 58788 Fiberoptic Laryngoscopy,Diag. Completed Encounters Type Date Location Provider Dx Diagnosis Office Visit 04/24/2018 Main Office Felix Askew M.D. R22.1 Localized swelling, 11:15a mass and lump, neck K21.9 Gastro-esophageal reflux disease without esophagitis Office Visit 03/14/2018 10:15a Main Office Felix Askew, R22.1 Localized swelling, M.D. mass and lump, neck L03.211 Cellulitis of face R42 Dizziness and giddiness I95.9 Hypotension, unspecified Office Visit 03/11/2018 4:05p Main Office Felix Askew R22.1 Localized swelling, M.D. mass and lump, neck L03.211 Cellulitis of face K21.9 Gastro-esophageal reflux disease without esophagitis Office Visit 03/09/2018 9:15a Main Office Felix Askew R22.1 Localized swelling, M.D. mass and lump, neck L03.211 Cellulitis of face Office Visit 09/08/2017 3:15p Main Office Felix Askew M.D. R42 Dizziness and giddiness K21.9 Gastro-esophageal reflux disease without esophagitis J31.0 Chronic rhinitis K11.20 Sialoadenitis, unspecified R22.1 Localized swelling, mass and lump, neck Office Visit 11/12/2013 4:15p Main Office Felix Askew, 780.4 Dizziness & M.D. Giddiness 389.10 Hearing Loss Sensorineural Unspec 386.11 Vertigo Benign Paroxysmal Position Office Visit 10/30/2013 4:15p Main Office Felix Askew, 389.10 Hearing Loss M.D. Sensorineural Unspec 780.4 Dizziness & Giddiness 386.11 Vertigo Benign Paroxysmal Position Office Visit 10/02/2013 4:15p Main Office Felix Askew, 780.4 Dizziness & M.D. Giddiness 386.11 Vertigo Benign Paroxysmal Position Office Visit 12/13/2011 8:15a Main Office Darrell, 786.09 Dyspnea & Ansley, PA Respiratory Abnormalities Other 780.50 Sleep Disturbance Unspec Office Visit 11/22/2011 10:45a Main Office Darrell 780.50 Sleep Disturbance Ansley, PA Unspec 786.09 Dyspnea & Respiratory Abnormalities Other Plan of Treatment No Information Available
[2018-08-24 16:16] VITALS: BP 96/60
--- NOTE | 2018-08-24 16:29 | UC ---
Knee Pain HPI - HPI Summary HPI Summary: 73 yo male presents with LEFT knee pain. He tells me that for about 1-2 weeks he has had left knee pain that is worse after sitting or standing for a long time - hurts to "get going" walking or moving. No known injury. He is ambulatory without assistance. Has been icing and [place] wrapping his knee with mild relief. Denies numbness or tingling. - History of Current Complaint Chief Complaint: UCLowerExtremity Stated Complaint: LEFT KNEE PAIN Time Seen by Provider: 08/24/18 16:29 Hx Obtained From: Patient Onset/Duration: Gradual Onset Severity Initially: Mild Severity Currently: Mild Pain Intensity: 2 Pain Scale Used: 0-10 Numeric - Allergies/Home Medications Allergies/Adverse Reactions: Allergies Allergy/AdvReac Type Severity Reaction Status Date / Time NSAIDS (Non-Steroidal Allergy Severe GI Upset Verified 01/20/18 08:51 Anti-Inflamma Cephalosporins Allergy Intermediate Swelling Verified 01/20/18 08:51 Penicillins Allergy Intermediate Swelling Verified 01/20/18 08:51 atorvastatin [From Lipitor] Allergy Muscle Ache Verified 01/20/18 08:57 Home Medications: Home Medications Calcium Carbonate [Calcium] 500 mg PO DAILY 08/24/18 [History Confirmed 08/24/18 ] PMH/Surg Hx/FS Hx/Imm Hx Endocrine History: Dyslipidemia GI/ History: Gastroesophageal Reflux Psychological History: Anxiety, Depression - Surgical History Surgical History: Yes Surgery Procedure, Year, and Place: right side hernia repair x 2, pace maker 2003, replaced 02/2014. eye surgery as infant. neck growth removed- squamous cell 2002. vasectomy 1983 approx. spinal stenosis repair L4-L5 2016. 2 JAW SURGERIES FOR STAPH INFECTION - Family History Known Family History: Positive: None Negative: Cardiac Disease, Hypertension, Diabetes - Social History Occupation: Retired Lives: With Family Alcohol Use: None Substance Use Type: None Smoking Status (MU): Former Smoker Type: Cigarettes Length of Time of Smoking/Using Tobacco: 20 yrs Have You Smoked in the Last Year: No When Did the Patient Quit Smoking/Using Tobacco: 1981 - Immunization History Most Recent Influenza Vaccination: FALL 2016 Review of Systems All Other Systems Reviewed And Are Negative: Yes Constitutional: Positive: Negative Skin: Positive: Negative Respiratory: Positive: Negative Cardiovascular: Positive: Negative Neurovascular: Positive: Negative Musculoskeletal: Positive: Other: - LEft knee pain Neurological: Positive: Negative Psychological: Positive: Negative Physical Exam - Summary Physical Exam Summary: GENERAL: NAD. WDWN. No pain distress. SKIN: No rashes, sores, lesions, or open wounds. CHEST: No accessory muscle use. Breathing comfortably and in no distress. CV: . Pulses intact popliteal, PT, and DP. Cap refill <2seconds MSK: LEFT KNEE: NTTP. FROM. Strength 5/5. No edema or obvious bony deformities. No patella apprehension. Negative Cornelio, A/P drawer, Dangelo, and varus/ valgus stress. NEURO: Alert. Sensations intact and symmetric B/L LEs PSYCH: Age appropriate behavior. Triage Information Reviewed: Yes Vital Signs: Initial Vital Signs Temp 97.8 F 08/24/18 16:08 Pulse 62 08/24/18 16:08 Resp 16 08/24/18 16:08 BP 96/60 08/24/18 16:08 Pulse Ox 99 08/24/18 16:08 Vital Signs Reviewed: Yes Knee Pain Course/Dx - Course Course Of Treatment: XR: IMPRESSION: Mild degenerative changes of the left knee in this otherwise nonacute. radiographic series. If the patient's symptoms persist, follow-up imaging is recommended. Suspect arthritis of left knee. Advised to take tylenol and continue RICE. F/u with Orthopedics for further eval if pain continues. - Differential Dx/Diagnosis Provider Diagnosis: Left knee pain Discharge - Sign-Out/Discharge Documenting (check all that apply): Patient Departure All imaging exams completed and their final reports reviewed: Yes - Discharge Plan Condition: Stable Disposition: HOME Patient Education Materials: Osteoarthritis (ED), Knee Pain (ED) Referrals: Manny Echeverria MD [Primary Care Provider] - Nora Laughlin MD [Medical Doctor] - If Needed Additional Instructions: If you develop a fever, shortness of breath, chest pain, new or worsening symptoms - please call your PCP or go to the ED. Continue to rest, ice, and elevate your knee to decrease pain Please call Orthopedics at the number below to schedule a follow up appointment if your knee pain continues - Billing Disposition and Condition Condition: STABLE Disposition: Home - Attestation Statements Provider Attestation: Per institutional requirements, I have reviewed the chart, however, I was not consulted specifically or made aware of this patient by the midlevel provider. I did not personally evaluate, interact with , or disposition this patient.
== END 2018-08-24 17:44 | disposition home or self-care (01) ==
LOC: UCCORT 14:19
DX: M25.562 Pain in left knee (principal); Z88.8 Allergy status to other drugs, medicaments and biological substances; Z88.0 Allergy status to penicillin; Z88.1 Allergy status to other antibiotic agents; Z87.891 Personal history of nicotine dependence
CPT/HCPCS: 99211; G0463

== ENCOUNTER 2019-04-10 16:17 | Emergency (ER) | payer MEDICARE ==
[2019-04-10 17:08] VITALS: BP 115/64
--- NOTE | 2019-04-10 17:14 | UC ---
Minor Trauma HPI - HPI Summary HPI Summary: Patient presents to urgent care with his . Patient is a 74-year-old gentleman who is had any object but on his house. Patient opened the screen door stepped out. There was no deck. Patient states he landed on his feet and fell backwards with his back striking the threshold of the door. Patient did not hit his head. Patient fell to ground with severe back pain. Patient states he was able to get up on his own but willing to his knees. Patient with sharp radiating pain from his left lateral back. Patient has baseline paresthesias of his feet status post laminectomy in 2016. This was in the lumbar area. Patient denies any abdominal pain. Patient with a slight abrasion to his left ring finger as well. Patient also with a slight abrasion to his left knee. Patient did not take anything for pain in 19 to treat his symptoms prior to arrival. Patient denies any new or different leg weakness or numbness. Patient is not on any anticoagulants. Patient did not strike his head. No blood out of his HEENT. No neck pain. Patient without any pain or weakness in his upper extremity's. Patient's medications reviewed this visit. - History of Current Complaint Chief Complaint: UCBackPain Stated Complaint: S/P FALL, RIGHT KNEE/BACK INJURY, LEFT PINKY LAC Time Seen by Provider: 04/10/19 17:08 Hx Obtained From: Patient Onset/Duration: Sudden Onset Severity Initially: Moderate Severity Currently: Moderate Pain Intensity: 5 Pain Scale Used: 0-10 Numeric - Allergies/Home Medications Allergies/Adverse Reactions: Allergies Allergy/AdvReac Type Severity Reaction Status Date / Time NSAIDS (Non-Steroidal Allergy Severe GI Upset Verified 04/10/19 17:08 Anti-Inflamma Cephalosporins Allergy Intermediate Swelling Verified 04/10/19 17:08 Penicillins Allergy Intermediate Swelling Verified 04/10/19 17:08 atorvastatin [From Lipitor] Allergy Muscle Ache Verified 04/10/19 17:08 PMH/Surg Hx/FS Hx/Imm Hx Previously Healthy: Yes Cardiovascular History: Hypertension - Surgical History Surgical History: Yes Surgery Procedure, Year, and Place: right side hernia repair x 2, pace maker 2003, replaced 02/2014. eye surgery as infant. neck growth removed- squamous cell 2002. vasectomy 1984 approx. spinal stenosis repair L4-L5 2017. 2 JAW SURGERIES FOR STAPH INFECTION - Family History Known Family History: Positive: None, Non-Contributory Negative: Cardiac Disease, Hypertension, Diabetes - Social History Lives: With Family Alcohol Use: None Substance Use Type: None Smoking Status (MU): Former Smoker Type: Cigarettes Length of Time of Smoking/Using Tobacco: 20 yrs Have You Smoked in the Last Year: No When Did the Patient Quit Smoking/Using Tobacco: 1981 - Immunization History Most Recent Influenza Vaccination: FALL 2016 Review of Systems All Other Systems Reviewed And Are Negative: Yes Constitutional: Positive: Negative Skin: Positive: Bruising, Other ENT: Positive: Negative Respiratory: Positive: Negative Cardiovascular: Positive: Negative - Abrasion Gastrointestinal: Positive: Negative Genitourinary: Positive: Negative Motor: Positive: Negative Neurovascular: Positive: Negative Musculoskeletal: Positive: Other: - Back pain lower thoracic left side Neurological: Positive: Numbness - Baseline paresthesias bilateral feet Physical Exam - Summary Physical Exam Summary: Vital Signs Reviewed: Yes A+Ox3, obvious discomfort with movement Eyes: Conjunctiva Clear ENT: Hearing grossly normal Neck: Positive: Supple no pain c spine full AROM Respiratory: Positive: No respiratory distress, No accessory muscle use + CTA throughout no w/r Cardiovascular: RRR nl s1, s2 no m/r CBT <2 sec abd soft + BS nt/nd no guarding, no distension Musculoskeletal Exam: Ambulatory with discomfort - uses a cane at baseline - pain left paraspinal inferior thoracic spine no crepitus no spinous process pain Neurological: Positive: Alert, + sensation throughout Psychological: Positive: Normal Response To examiner Skin: Positive: no rash, 3x3cm area ecchymosis paraspinal inferior thoracic area - no crepitus small non-suturable abraison left 5th finger Vital Signs: Initial Vital Signs Temp 98.3 F 04/10/19 16:59 Pulse 68 04/10/19 16:59 Resp 18 04/10/19 16:59 BP 115/64 04/10/19 16:59 Pulse Ox 96 04/10/19 16:59 Minor Trauma Course/Dx - Course Course Of Treatment: Patient presents to urgent care with pain in his left thoracic back pain status post falling off of a deck. No straight head. No spinous process pain or neck or back pain. Patient with a history of a laminectomy in the lumbar. Patient without any new weakness or paresthesias. On exam patient in obvious discomfort. Vital signs are stable. Patient with tenderness paraspinal left inferior thoracic region. Patient also with a 2 x 3 cm evolving area of ecchymosis in the same area. Discussed with patient. Recommend advanced imaging. No CT available at urgent care this evening. Patient in agreement with plan to go to the emergency department. Her patient EMS transfer as well as contact the patient declined both. Will give Tylenol and ice. Patient's will drive there. I called and spoke to Yoly Brandon, nurse practitioner in the ED. She is aware patient coming. Patient comfortable in agreement with plan. P - Differential Dx/Diagnosis Provider Diagnosis: Contusion, back, Back pain, Fall, Abrasion Discharge ED - Sign-Out/Discharge Documenting (check all that apply): Patient Departure All imaging exams completed and their final reports reviewed: No Studies - Discharge Plan Condition: Stable Disposition: HOME-RECOMMEND TO ED Patient Education Materials: Acute Low Back Pain (ED) Referrals: Bhumi Sy MD [Primary Care Provider] - Additional Instructions: The doctor that evaluated you today thinks that you need additional testing that can be completed the emergency department. It is recommended that you go directly to emergency department for further evaluation. This evaluation included blood work or imaging. This testing will be directed and decided by the provider that evaluates you at the emergency department. If pain becomes worse, you feel lightheaded, you have uncontrolled vomiting, or you have any other concerns while you are being driven to emergency department as recommended to polo and contact 911. He wanted to undergo elective - Billing Disposition and Condition Condition: STABLE Disposition: Home-Recommend to ED
[2019-04-10] MEDS ORDERED: Acetaminophen TAB* 325 MG PO ONE (17:25)
== END 2019-04-10 17:39 | disposition home health service (06) ==
LOC: UCCORT 16:17
DX: S20.222A Contusion of left back wall of thorax, initial encounter (principal); S80.212A Abrasion, left knee, initial encounter; S60.415A Abrasion of left ring finger, initial encounter; I10 Essential (primary) hypertension; R20.0 Anesthesia of skin; Z88.8 Allergy status to other drugs, medicaments and biological substances; Z88.1 Allergy status to other antibiotic agents; Z88.0 Allergy status to penicillin; Z87.891 Personal history of nicotine dependence; W01.198A Fall on same level from slipping, tripping and stumbling with subsequent striking against other object, initial encounter; Y92.009 Unspecified place in unspecified non-institutional (private) residence as the place of occurrence of the external cause
CPT/HCPCS: 99212; A9270-GY; G0463

== ENCOUNTER 2019-05-14 10:28 | Day surgery (SDC) | payer MEDICARE ==
[~2019-05-14 10:28] MED LIST changes: -Buffered Lidocaine 1% SYR 3ML* 3 ML/SYR SYRINGE INTRADERM ONE; +Buffered Lidocaine 1% SYRIN* 1 ML/SYRINGE INTRADERM ONE; +Dexamethasone IV* 4 MG/ML 1 ML (4 MG) IV SLOW PU ONE; +Lactated Ringers 1000 ML Bag* 1,000 ML IV SCH
[2019-05-14] MEDS ORDERED: Dexamethasone IV* 4 MG/ML 1 ML (4 MG) ONE (10:44)
[2019-05-14] MEDS ORDERED: Clindamycin 900 MG/D5W BAG(*) 900 MG/50 ML BAG IVPB ONE (11:01)
[2019-05-14] MEDS ORDERED: fentaNYL* 50 MCG/ML 5 ML VIAL (250 MCG VIAL) ONE (11:30)
[2019-05-14] MEDS ORDERED: Ropivacaine 0.2% * 2 MG/ML VIAL ONE (11:30)
[2019-05-14] MEDS ORDERED: Lidocaine 1% w EPI 1:200,000* SDV 30 ML VIAL ONE ×2 (11:30→11:46)
[2019-05-14] MEDS ORDERED: Propofol* 10 MG/ML 20 ML BTL ONE (11:31)
[2019-05-14] MEDS ORDERED: Midazolam* 1 MG/ML 2 ML VIAL (2 MG) ONE (11:31)
[2019-05-14] MEDS ORDERED: Ondansetron INJ* 2 MG/ML VIAL ONE (11:31)
[2019-05-14] MEDS ORDERED: Lidocaine 2% PF * 5 ML VIAL ONE (11:35)
[2019-05-14] MEDS ORDERED: DiMENhydriNATE IV* 50 MG/ML VIAL IV PUSH PRN (12:28)
[2019-05-14] MEDS ORDERED: Naloxone* 0.4 MG/ML 1 ML VIAL IV PRN (12:28)
[2019-05-14] MEDS ORDERED: fentaNYL* 50 MCG/ML 2 ML VIAL (100 MCG VIAL) IV PRN (12:28)
[2019-05-14] MEDS ORDERED: oxyCODONE/Acetamin 5/325 MG* TAB PO PRN (12:28)
[2019-05-14] MEDS ORDERED: Ondansetron INJ* 2 MG/ML VIAL IV PRN (12:28)
[2019-05-14] MEDS ORDERED: Acetaminophen TAB* 325 MG PO ONE (13:06)
[2019-05-14] MEDS ORDERED: Acetaminophen TAB* 325 MG ONE (13:17)
[2019-05-14] MEDS ORDERED: oxyCODONE/Acetamin 5/325 MG* TAB ONE (13:22)
[2019-05-14 15:02] VITALS: BP 134/78
--- NOTE | 2019-05-15 10:11 | OP ---
DATE OF OPERATION: 05/14/19 [facility] DATE OF : 49 SURGEON: Suad James MD. BASEBALL HAND SEWER: RACHAEL Schneider. An health education assistant was needed for the entirety of the case to help in positioning, retraction, and was utilized throughout all portions of the case. ANESTHESIOLOGIST: Dr. Gallagher. ANESTHESIA: General. PRE-OP DIAGNOSIS: Right knee osteoarthritis with lateral meniscus tear. POST-OP DIAGNOSIS: Right knee osteoarthritis with lateral meniscus tear, medial meniscus tear, and loose body. OPERATIVE PROCEDURE: Right knee arthroscopy with partial medial and partial lateral meniscectomy, removal of loose body, chondroplasty of the patellofemoral joint, and synovectomy. COMPLICATIONS: None. ESTIMATED BLOOD LOSS: Minimal. INDICATIONS: Ajit Pillai is a 74-year-old male who sustained an injury to his knee several months ago. He has failed conservative management. He was diagnosed with a meniscus tear based on CT imaging but did not wish to proceed with surgery. He since has maintained and progressed with a flexion contracture. He has difficulty ambulating with catching and locking. We talked about different options including knee replacement, which he feels is too aggressive. He tries to be active but is limited in his activities of daily living. Risks included, but not limited to, bleeding; infection; damage to nerves, vessels, surrounding structures; wound nonhealing; persistent pain; need for surgery; scarring; stiffness; incomplete relief of symptoms; risks of anesthesia; risk of DVT, has a family history of DVT. DESCRIPTION OF PROCEDURE: The patient was greeted in the preoperative area by the attending surgeon. Correct extremity was marked and consent was confirmed. The patient was brought back to the operating suite and was placed in the supine position on the operating table. He then underwent general anesthesia, after which he was appropriately positioned in the bed. The lateral post was positioned. An unsterile tourniquet was placed high on the proximal thigh. The right leg was then prepped and draped in the usual sterile fashion beginning with chlorhexidine soap, scrub, and alcohol wipe and a final prep with ChloraPrep. After appropriate surgical pause indicating side, site, and procedure and administration of antibiotics, the knee was intra-articularly injected with 1% lidocaine with epi. An anterolateral portal was made sharply with an 11 blade. The scope was introduced into the joint. The joint was examined. There was abundant synovitis that was present. There was evidence of ACL injury, maybe a partial PCL injury. There were grade 2 to 3 changes with an osteophyte in the patellofemoral joint. The medial and lateral gutters were intact once the synovitis was completely removed. The medial compartment was examined. There were grade 2 changes with unstable meniscus flap, which was debrided back using joceline and biters. Knee was placed in [id number] position. There was a large amount of synovitis with an unstable root of the meniscus tear with a bulbous area that was displaced posteriorly, which was debrided back using biters and joceline. Remainder of the meniscus had a partial tear towards the periphery. There was also a loose body that was present in the notch 2, one was meshed in scar tissue. Both of them were removed. They were about 5 mm in diameter. Final images were obtained. The knee was thoroughly lavaged of any loose debris. The knee previously had a flexion contracture of 30 degrees, now had a flexion contracture of about 5 degrees. Passively manipulated him to get straighter. The wounds were then copiously irrigated with sterile saline. Hemostasis was obtained using electrocautery device. The portals were closed with 3-0 nylon in interrupted fashion. Sterile dressings were applied and Cryo/ Cuff. The wound was intra- articularly and superficially injected with 0.2% ropivacaine. He was awoken from anesthesia and transferred to the PACU in stable condition. POSTOPERATIVE PLAN: He will be nonweightbearing. He will be discharged on pain medication and Lovenox for DVT prophylaxis for 10 days. I will see the patient back in 10 to 14 days. [id number]/[facility] #: [id number] TEA
== END 2019-05-14 14:52 | disposition home or self-care (01) ==
LOC: OREAST 10:28
PROVIDERS: ATTEND Orthopaedic Surgery
DX: S83.281A Other tear of lateral meniscus, current injury, right knee, initial encounter (principal); S83.241A Other tear of medial meniscus, current injury, right knee, initial encounter; M17.11 Unilateral primary osteoarthritis, right knee; M24.051 Loose body in right hip; Z95.0 Presence of cardiac pacemaker; R00.1 Bradycardia, unspecified; E78.00 Pure hypercholesterolemia, unspecified; M19.90 Unspecified osteoarthritis, unspecified site; F32.9 Major depressive disorder, single episode, unspecified; Z88.0 Allergy status to penicillin; Z87.891 Personal history of nicotine dependence; X58.XXXA Exposure to other specified factors, initial encounter; Y92.9 Unspecified place or not applicable
CPT/HCPCS: A9270-GY; J1100; J2001; J2250; J2405; J2704; J2795; J3010

== ENCOUNTER 2024-03-29 11:54 | Observation (INO) ==
[~2024-03-29 11:54] MED LIST changes: -Buffered Lidocaine 1% SYRIN* 1 ML/SYRINGE INTRADERM ONE; -Dexamethasone IV* 4 MG/ML 1 ML (4 MG) IV SLOW PU ONE; -Lactated Ringers 1000 ML Bag* 1,000 ML IV SCH; +NS 0.45% 1000 ml BAG 1,000 ML IV SCH; +Naloxone 0.4 mg VIAL 0.4 mg/ml 1 ml VIAL IV PRN; +Ondansetron 4 mg VIAL 2 MG/ML 2 ml VIAL IV PRN; +fentaNYL 100 mcg/2 ml 50 MCG/ML VIAL IV PRN
[2024-03-29 13:04] LABS: Rapid COVID-19 Molecular Undetected (Undetected)
[2024-03-29] MEDS ORDERED: ceFAZolin 2 GM PREMIX 2 GM/50 ML BAG ONE (13:19)
[2024-03-29] MEDS ORDERED: Tranexamic Acid 1 GM/100ML BAG 2,000 MG/200 ML BAG IV ONE (13:22)
[2024-03-29] MEDS ORDERED: Midazolam 2 mg/2 ml VIAL 1 mg/ml 2 ml VIAL (2 mg) ONE ×2 (13:34→14:03)
[2024-03-29] MEDS ORDERED: fentaNYL 100 mcg/2 ml 50 MCG/ML VIAL ONE (13:35)
[2024-03-29] MEDS: Buffered Lidocaine 1% SYRIN 1 ml INTRADERM ONE (13:44)
[2024-03-29] MEDS: Lactated Ringers 1000 ml BAG 1,000 ML IV SCH ×2 (13:45→20:10)
[2024-03-29] MEDS ORDERED: Rocuronium 50 mg VIAL 10 mg/ml 5 ml VIAL (50 mg) ONE ×2 (14:02→16:25)
[2024-03-29] MEDS ORDERED: ROPIVACAINE 5 MG/ML 30 ML BTL (0.5%) ONE ×2 (14:03→14:53)
[2024-03-29] MEDS ORDERED: Dexamethasone IV 4 MG/ML VIAL 1 ml VIAL ONE ×2 (14:03→15:48)
[2024-03-29] MEDS ORDERED: Clindamycin 900 MG/50 **NS BAG 900 MG/50 ML BAG ONE (15:00)
[2024-03-29] MEDS ORDERED: Ondansetron 4 mg VIAL 2 MG/ML 2 ml VIAL ONE (15:48)
[2024-03-29] MEDS ORDERED: HYDROmorphone 0.5 MG/0.5 ML SYRINGE ONE (15:48)
[2024-03-29] MEDS ORDERED: Lactulose 30 ml UDC PO PRN (17:30)
[2024-03-29] MEDS ORDERED: Magnesium Hydroxide LIQ 30 ML UDC PO PRN (17:30)
[2024-03-29] MEDS ORDERED: Calcium Carb (TUMS) 500 mg CHEW TAB PO PRN (17:30)
[2024-03-29] MEDS ORDERED: Ondansetron 4 mg VIAL 2 MG/ML 2 ml VIAL IV PRN (17:30)
[2024-03-29] MEDS ORDERED: Ondansetron ODT 4 mg TAB 4 MG TAB PO PRN (17:30)
[2024-03-29] MEDS ORDERED: Morphine 2 MG/ML SYRINGE IV PRN (17:30)
[2024-03-29] MEDS: Acetaminophen IV 1 GM/100ML 1,000 MG/100 ML BAG IV ONE (17:43)
[2024-03-29] MEDS ORDERED: ceFAZolin 2 GM PREMIX 2 GM/50 ML BAG IV SCH (18:00)
[2024-03-29] MEDS ORDERED: Albuterol HFA INHALER 8 gm MDI INH PRN (19:14)
[2024-03-30] MEDS: Magnesium Hydroxide LIQ 30 ML UDC PO SCH (01:12)
[2024-03-30] MEDS: Clindamycin 900 MG/D5W BAG 900 MG/50 ML BAG IVPB SCH (01:25)
[2024-03-30 05:34] LABS: Hematocrit 34.9 % (38-53); Hemoglobin 11.7 g/dL (13.2-16.3); Mean Platelet Volume 7.8 fL (7.5-11.2); Platelet Count 154 10^3/uL (150-450)
[2024-03-30 07:09] LABS: Calcium 8.7 mg/dL (8.6-10.3); Creatinine, Serum 0.88 mg/dL (0.67-1.17); Potassium 4.1 mmol/L (3.5-5.0); eGFR CKD-EPI 89.1 (>60)
[2024-03-30] MEDS: Vitamin THERAPEUTIC TAB PO SCH (07:55)
[2024-03-30 10:00] VITALS: BP 112/65
== END 2024-03-30 13:50 | disposition home or self-care (01) ==
LOC: OR 11:54 → SSU 11:54
PROVIDERS: ADMIT Physician Assistant Surgical; ATTEND Orthopaedic Surgery Adult Reconstructive Orthopaedic Surgery